=== PATIENT | female | born 1945 | race Caucasian/White ===

== ENCOUNTER → 2020-04-28 | Outpatient (CLI) | payer MEDICARE ==
[~2020-04-28] MED LIST: BETIMOL5 ML EA. EYE; CALCIUM500 MG PO; ELIQUIS5 MG PO; FISH OIL 1,001000 M3 PO; LEVO-T50 MCG PO; LOSARTAN POTASS50 MG PO; MULTI VITAMIN1 EACH PO; OSTERA TABLET1 EAC1 PO; SINGULAIR 10 MG10 MG PO; TIMOLOL MALEATE5 M2 EA. EYE; VYZULTA5 ML EA. EYE
--- NOTE | 2020-04-28 17:16 | CARDNUC ---
[place] [address] CARDIAC NUCLEAR IMAGING REPORT Name: JENNI MCCARTY Room: [facility]#: [id number] Admission: 04/28/20 Attend Phys: Shelly Murillo Discharge: Date of : 47 Date of Service: 04/28/20 1716 Report #: [id number] THIS REPORT FOR: cc: Sid Thompson MD, Steven M. MD Liston, Michael J. MD [facility] ~ APPROVED REPORT Imaging Protocol: Stress Tc-99m/Rest Tc-99m 1 day Study performed: 04/28/2020 12:45:00 Indication: chest pressure radiating to back/scapulas, dyspnea. Patient Location: Out-Patient Stress Tech: Gladis Henriquez Stress Nurse: Dafne Wasserman RN Ht: 5 ft 2 in Wt: 149 lbs BSA: 1.69 m2 BMI: 27.24 Medical History Medical History: radiating chest pain, dyspnea, HX PE, HTN, HLD. Medications: Eliquis, Cozaar, Fish oil. Allergies: Amlodipine, Cipro, Doxycycline, PCN, Symbicort. Cardiac Risk Factors: Age, FHX of CAD, HTN, Hyperlipidemia, SOB. Previous Cardiac Procedures: None Pretest Chest Pain Characteristics: No chest pain Exercise History: Indeterminate Physical Disabilities: Unsteady gait, LE pain. Meds Held (24 hrs): None Resting Data Rest SPECT myocardial perfusion imaging was performed in supine position 30 minutes following the intravenous injection of 10.3 mCi of Tc-99m Sestamibi. Time of rest injection: 13:00 The images were gated to evaluate regional wall motion and calculate left ventricular ejection fraction. Administration Route: IV Administration Site: Right [place] [address] CARDIAC NUCLEAR IMAGING REPORT Name: JENNI MCCARTY [id number] Admission: 04/28/20 Attend Phys: Shelly Murillo Discharge: Date of : 47 Date of Service: 04/28/20 1716 Report #: [id number] Pharmacologic stress test was performed by injecting Regadenoson 0.4 mg IV push over 10-15 seconds immediately followed by the intravenous injection of 32.3 mCi of Tc-99m Sestamibi. Time of stress injection: 14:35 Administration Route: IV Administration Site: Right Hand Heart Rate at time of stress injection: 118 bpm. Gated Stress SPECT was performed 40 minutes after stress injection. The images were gated to evaluate regional wall motion and calculate left ventricular ejection fraction. Prone imaging was performed. Stress Test Details Stress Test: Pharmacologic stress was paired with low level exercise. Reason for pharmacologic stress test: Unsteady gait, LE pain.. HR Max Heart Rate (APMHR): 147 bpm Resting HR: 63 bpm Target HR (85% APMHR): 124 bpm Max HR Achieved: 118 bpm % of APMHR: 80 Recovery HR: 82 bpm BP Resting BP: 167/88 mmHg Max BP: 188/114 mmHg Recovery BP: 153/94 mmHg ECG Resting ECG: Sinus Rhythm Stress ECG: Sinus Tachycardia ST Change: None Arrhythmia: None Recovery ECG: Sinus Rhythm Recovery ST Change: None Recovery Arrhythmia: None Clinical Reason for Termination: Completed protocol Stress Symptoms: Dyspnea, lightheadedness, headache, bilateral arm weakness, pain between scapulas 4/10 Exercise duration: 4 min 04 sec Exercise capacity: 2.15 METs The patient noted some pain in her back with Lexiscan walking protocol. There was no other chest [place] [address] CARDIAC NUCLEAR IMAGING REPORT Name: RENAY MCCARTYINE Room: [facility]#: [id number] Admission: 04/28/20 Attend Phys: Shelly Murillo Discharge: Date of : 47 Date of Service: 04/28/20 1716 Report #: [id number] breath. Nurse Comments A 74 year old female presented for a walking Lexiscan Nuclear Stress test. Test well tolerated with reduced speed to 1.5 mph for patient safety. Test well tolerated. Recovery unremarkable. Patient stated she felt better when escorted via wheelchair to Nuclear Medicine for imaging. Stress ECG Conclusion Baseline twelve-lead EKG shows sinus rhythm without significant ST segment or T wave abnormality. EKGs obtained during and post walking Lexiscan protocol show sinus rhythm and sinus tachycardia with no significant ST segment or T wave changes when compared to baseline. There were no stress-induced arrhythmias. Study Quality Study: Excellent Artifact: No artifact Study Data At rest, the left ventricular ejection fraction was 71%.. Post stress, the left ventricular ejection was 79%.. TID = 1.12. Perfusion Perfusion images obtained at rest and post Lexiscan stress show uniform uptake of the radioisotope throughout the myocardium. There were no defects to suggest infarct or ischemia. Wall Motion Normal left ventricular wall motion. Nuclear Conclusion ECG Findings: negative for ischemia Clinical Findings: equivocal Nuclear Findings: negative for ischemia Exercise Capacity: not assessed Left Ventricular Function: normal Risk Study: low Perfusion study showed no defect to suggest infarct or ischemia. Left ventricular systolic function is normal on gated studies. This is a low risk study. <Conclusion> Baseline twelve-lead EKG shows sinus [place] [address] CARDIAC NUCLEAR IMAGING REPORT Name: SEDARENAY RichmondJENNI Room: [facility]#: [id number] Admission: 04/28/20 Attend Phys: Shelly Murillo Discharge: Date of : 47 Date of Service: 04/28/20 1716 Report #: [id number] segment or T wave abnormality. EKGs obtained during and post walking Lexiscan protocol show sinus rhythm and sinus tachycardia with no significant ST segment or T wave changes when compared to baseline. There were no stress-induced arrhythmias. <ELECTRONICALLY SIGNED> By: Maxime Barcenas MD, FACC 04/28/20 1716 15 15 Maxime Barcenas MD, FACC /INF
== END ==
LOC: M.NUC 04-22 10:10
PROVIDERS: ATTEND Internal Medicine
DX: R07.89 Other chest pain (principal); R06.00 Dyspnea, unspecified; I10 Essential (primary) hypertension